=== PATIENT | female | born 1980 | race Caucasian/White ===

== ENCOUNTER 2018-10-09 13:40 | Outpatient (CLI) | payer MEDICAID ==
[~2018-10-09] VITALS: Ht 154.9 cm; Wt 91.2 kg
--- NOTE | 2018-10-09 14:37 | HP ---
Date/Time of Note Date/Time of Note DATE: 10/09/18 TIME: 14:23 OB - History Hx of Present Free Text/Dictation 38 YO with IUP at 33 weeks with EDC on 11/20/2018 who reports to L&D for APT. she has low NASRIN-A and IUGR. Care: Good Care Ultrasounds: No ultrasounds Obstetrical Complications: Gestational Diabetes Medical Complications: None Past Family/Social History * Past Medical, Surgical, Family and Obstetric Histories reviewed from chart. OB Admission Exam Physical Exam HEENT: WNL Heart: Rhythm Normal Lungs: Clear, Equal Abdomen: WNL Extremities: Normal Reflexes: Normal OB Assessment/Plan Reason for admission: other (IUP at 33 weeks, GDM, Low NASRIN-A) Other plan: NST AVERY HERNÁNDEZ MD Oct 09, 2018 14:35
--- NOTE | 2018-10-09 15:26 | TRIAGE ---
OB Triage Datetime Report Generated by CPN: 10/09/2018 15:26 Datetime: 10/09/2018 15:04 Labor Evaluation Monitor Mode: External Heart Rate Monitor Mode: External US Datetime: 10/09/2018 14:08 Assessment Type: Triage Maternal Assessment Level of Consciousness: Keenly Alert, Responsive DTR's/Clonus: DTRs 2+; No Clonus Headache: Denies Blurred Vision: No Respiratory Effort: Unlabored; Regular Rhythm; Equal Expansion Breath Sounds, Left: Clear and Equal Breath Sounds, Right: Clear and Equal Nausea/Vomiting: Denies RUQ Epigastric Pain: Denies Lower Extremities Edema: None Degree: None Upper Extremities Edema: None Degree: None Facial Edema: None Fall Risk Assessment History of Falling: (0) No Secondary Diagnosis: (0) No Ambulatory Aid: (0) Bedrest/Nurse Assist IV Therapy: (0) No Gait: (0) Normal/Bedrest/Immobile Mental Status: (0) Oriented to Own Ability Fall Score: 0 Fall Risk Score Definition: No Risk: No action required Datetime: 10/09/2018 14:07 Time of Arrival: 10/09/2018 13:27 EGA: 34.0 Arrived By: Ambulatory Arrived From: Office Chief Complaint: PT. SENT FROM CLINIC FOR NST/BPP FOR LOW NASRIN-A/GDM Movement: Present Contractions: Denies/Absent Rupture of Membranes: Denies Vaginal Bleeding: None Vaginal Discharge: Denies Recent Sexual Intercouse: Denies Abdominal Trauma: Not Applicable Time Provider Notified: 10/09/2018 14:00 Provider Notified: JOSE Initial Plan: NST/BPP
[2018-10-09 15:28] VITALS: BP 110/56; PULSE 82; RESP 18
[2018-10-09 15:30] VITALS: Ht 154.9 cm; Wt 91.2 kg
== END 2018-10-09 15:40 | disposition home or self-care (01) ==
LOC: OBT 13:40 → L-D 13:40 → OBT 15:40
PROVIDERS: ATTEND Specialist
DX: O36.5930 Maternal care for other known or suspected poor fetal growth, third trimester, not applicable or unspecified (principal); O24.419 Gestational diabetes mellitus in pregnancy, unspecified control; Z3A.33 33 weeks gestation of pregnancy
CPT/HCPCS: 76818; Z7500; G0463

== ENCOUNTER 2018-11-16 07:30 | Inpatient (IN) | payer MEDICAID ==
[~2018-11-16] VITALS: Ht 152.4 cm; Wt 95.4 kg
[2018-11-16] MEDS ORDERED: LACTATED RINGER'S 1,000 ML IV SCH ×2 (07:58→12:54)
[2018-11-16] MEDS ORDERED: METHYLERGONOVINE 0.2 MG INJ IM PRN (08:00)
[2018-11-16] MEDS ORDERED: MISOPROSTOL 200 MCG TAB PR PRN ×2 (08:00→13:00)
[2018-11-16] MEDS ORDERED: CEFAZOLIN 2 GM/50 ML (PMX) 50 ML IVPB SCH (08:00)
[2018-11-16] MEDS ORDERED: OXYTOCIN 30 UNITS/LR 500 ML IV PRN (08:00)
[2018-11-16] MEDS ORDERED: CARBOPROST 250 MCG INJ IM PRN (08:00)
--- NOTE | 2018-11-16 11:01 | HP ---
Date/Time of Note Date/Time of Note DATE: 11/16/18 TIME: 10:59 OB - History Hx of Present Free Text/Dictation 38-year-old 3 para 2 with at 39 weeks and 3 days with estimated due date. The patient with history of previous delivery, who desires to have repeat delivery. I discussed with the patient the risks, benefits, indications, and alternatives of procedure including but not limited to risks of infection, bleeding, damage to other organs, bowel, bladder, hernia formation, scar formation, possibility of blood transfusion, possible need for emergency hysterectomy. She was allowed to ask questions. All her questions were answered. Informed consent has been obtained. Early in care patient had decided to have permanent sterilization, but at this time she changed her mind and she declines to have permanent sterilization. Care: Good Care Ultrasounds: Normal mid trimester US Obstetrical Complications: None Medical Complications: None Past Family/Social History * Past Medical, Surgical, Family and Obstetric Histories reviewed from chart. OB Admission Exam Physical Exam HEENT: WNL Heart: Rhythm Normal Lungs: Clear, Equal Abdomen: WNL Extremities: Normal Reflexes: Normal Last 72 hours Lab Results CBC & BMP 11/16/18 08:00 OB Assessment/Plan Other Assessment: at 39 weeks and 3 days. history of previous delivery x2 Plan: Section AVERY GARCIA MD Nov 16, 2018 11:01
[2018-11-16] MEDS ORDERED: ONDANSETRON 4 MG INJ IV ONE (11:30)
[2018-11-16] MEDS ORDERED: CITRIC ACID/NA CITRATE 30 ML CUP PO ONE (11:30)
--- NOTE | 2018-11-16 11:30 | PREAC ---
Date/Time of Note Date/Time of Note DATE: 11/16/18 TIME: 11:29 Anesthesia Eval and Record Evaluation Time Pre-Procedure Interview DATE: 11/16/18 TIME: 11:29 Age 38 Sex female NPO: 8 hrs Preoperative diagnosis Repeat Planned procedure Past Medical History Past Medical History: Includes : : (3), Para: (2), Gestational age: (39) Surgery & Anesthesia Issues No known issue Meds Anticoagulation: No Beta Maulik within 24 hr: No Reason Beta Maulik not given: Pt. not on B-Maulik No Active Prescriptions or Reported Meds Current Medications Lactated Ringer's 1,000 ml @ 125 mls/hr Q8H IV Last administered on 11/16/18at 08:23; Admin Dose 125 MLS/HR; Start 11/16/18 at 07:58 Cefazolin Sodium/ Dextrose 50 ml @ 100 mls/hr ONCE IVPB ; Start 11/16/18 at 08:00 Oxytocin/Lactated Ringer's 500 ml @ 125 mls/hr POST IV ; Start 11/16/18 at 08:00 Oxytocin/Lactated Ringer's 500 ml @ 0 mls/hr ONCE PRN IV .VAGINAL BLEEDING; Start 11/16/18 at 08:00 Methylergonovine Maleate (Methergine) 0.2 mg ONCE PRN IM .VAGINAL BLEEDING; Start 11/16/18 at 08:00 Carboprost Tromethamine (Hemabate) 250 mcg ONCE PRN IM .VAGINAL BLEEDING; Start 11/16/18 at 08:00 Misoprostol (Cytotec) 1,000 mcg ONCE PRN MT .VAGINAL BLEEDING; Start 11/16/18 at 08:00 Meds reviewed: Yes Allergies Coded Allergies: No Known Allergy (Unverified , 10/09/18) Allergies Reviewed: Yes Labs/Studies Labs Reviewed: Reviewed by anesthesiologist Result Diagram: 11/16/18 0800 Laboratory Tests 11/16/18 08:00 Blood Bank Test 11/16/18 08:00 Antibody Screen NEGATIVE Blood Type AB POSITIVE Rh Immune Globulin Candidate NO test: Positive Studies: ECG (n/a), CXR (n/a) Pre-procedure Exam Airway: Adequate mouth opening, Adequate thyromental dist Mallampati: Mallampati II Teeth: Normal Lung: Normal Heart: Normal ASA Physical Status ASA physical status: 2 Emergency: None Planned Anesthetic Neuraxial: Spinal Planned Pain Management Sub-arachniod narcotics, Parenteral pain med Pre-operative Attestations Prior to commencing anesthesia and surgery, the patient was re-evaluated, there was verification of: *The patient's identity *The results of appropriate recent lab work and preoperative vital signs *The above evaluation not changing prior to induction *Anesthetic plan, risk benefits, alternative and complications discussed with patient/family; questions answered; patient/family understands, accepts and wishes to proceed. OSBALDO OBRIEN MD Nov 16, 2018 11:30
[2018-11-16] MEDS ORDERED: OXYCODONE/ACETAMINOPHEN (5/325) TAB PO PRN ×2 (13:00)
[2018-11-16] MEDS ORDERED: OXYTOCIN 30 UNITS/LR 500 ML BAG IV ONE (13:00)
[2018-11-16] MEDS ORDERED: NA PHOSPHATE/BIPHOS 133 ML ENEMA PR PRN (13:00)
[2018-11-16] MEDS ORDERED: KETOROLAC 30 MG INJ ONE (13:18)
[2018-11-16] MEDS ORDERED: DEXAMETHASONE 4 MG/ML 1 ML INJ ONE (13:18)
[2018-11-16] MEDS ORDERED: morphine SULFATE/PF (10 MG/10 ML) INJ ONE (13:18)
[2018-11-16] MEDS ORDERED: ONDANSETRON 4 MG INJ ONE (13:18)
[2018-11-16] MEDS ORDERED: METOCLOPRAMIDE 10 MG INJ ONE (13:18)
[2018-11-16] MEDS ORDERED: OXYTOCIN 10 UNIT INJ ONE (13:18)
[2018-11-16] MEDS ORDERED: PHENYLephrine (100 MCG/ML) 10ML SYG ONE (13:19)
--- NOTE | 2018-11-16 14:19 | PAC ---
Date/Time of Note Date/Time of Note DATE: 11/16/18 TIME: 14:19 Post-Anesthesia Notes Post-Anesthesia Note Last documented vital signs T: 98.0 Activity: WNL Respiratory function: WNL Cardiovascular function: WNL Mental status: Baseline Pain reasonably controlled: Yes Hydration appropriate: Yes Nausea/Vomiting absent: Yes OSBALDO OBRIEN MD Nov 16, 2018 14:19
--- NOTE | 2018-11-16 14:28 | OPR ---
Date/Time of Note Date/Time of Note DATE: 11/16/18 TIME: 14:26 Operative Report Procedure Date: Nov 16, 2018 Preoperative Diagnosis at 39 weeks and 2 days History of. delivery Desires repeat delivery Postoperative Diagnosis Same Operation/Procedure Performed Repeat delivery Surgeon Jeanne Carlisle MD Reinforcing Bar Setter Dr. Pineda Anesthesia Type: spinal Estimated Blood Loss: other (700 mL) Transfusion none Specimen None Grafts/Implants none Tubes/Drains Ayoub catheter Complications none Pt Condition Post Procedure: stable Disposition: PACU Procedure Description The risks, benefits, indications, alternatives of procedure including, but not limited to risk of infection, bleeding, damage to other organs, bowel, bladder, hernia formation, scar formation, possibility of blood transfusions discussed with patient. She was allowed to ask questions. All her questions were answered. Informed consent was obtained. DESCRIPTION OF PROCEDURE: She was taken to the operating room. Spinal anesthesia was induced. She was prepped and draped in the usual sterile fashion. Surgical time out one. Anesthesia was tested to be adequate. With permission from anesthesiologist, a knife was used to make a Pfannenstiel skin incision. The incision was taken down in layers. The fascia was cut, undermined and from the underlying muscle using sharp and blunt dissection. All the bleeders were cauterized. Peritoneum was entered bluntly. A low transverse incision was developed over the uterus. Amniotic fluid was clear and adequate. A viable in vertex presentation was delivered without any difficulty. The cord was clamped and cut, handed to awaiting team. Placenta was then delivered. Uterus was exteriorized, wrapped around a moist lap. Inside uterus was cleaned using a dry lap. All residual membranes were removed. The uterine incision was then closed using #1 Monocryl in 2 layers. The uterus was inserted back inside the abdominal cavity. Irrigation was done carefully. Careful evaluation of the uterine incision revealed no further bleeding. The peritoneum and rectus muscles and fascia were evaluated. All bleeders cauterized. Peritoneum was closed using 2-0 Monocryl. At this time, the count was correct. Rectus muscle was reapproximated using 2-0 Monocryl. Rectus fascia was closed using #1 Vicryl. Subcutaneous tissue was cleaned and irrigated. All bleeders cauterized and the skin closed using Insorb. All counts correct. JEANNE CARLISLE MD Nov 16, 2018 14:28
[2018-11-16] MEDS ORDERED: morphine 2 MG INJ IV PRN ×2 (14:30)
[2018-11-16] MEDS ORDERED: HYDROmorphONE 0.5 MG/0.5 ML SYG IV PRN ×2 (14:30)
[2018-11-16] MEDS ORDERED: HYDROCODONE/APAP (5/325) TAB PO PRN (14:30)
[2018-11-16] MEDS ORDERED: NALOXONE (0.4 MG/ML) INJ IV PRN (14:30)
[2018-11-16] MEDS ORDERED: ONDANSETRON 4 MG INJ IV PRN (14:30)
[2018-11-16] MEDS ORDERED: NALBUPHINE HCL (10 MG/1 ML) INJ IV PRN (14:30)
[2018-11-16] MEDS ORDERED: ACETAMINOPHEN 500 MG TAB PO PRN (14:30)
[2018-11-16] MEDS ORDERED: DIPHENHYDRAMINE 50 MG INJ IV PRN (14:30)
[2018-11-16] MEDS ORDERED: KETOROLAC 30 MG INJ IV PRN (14:30)
[2018-11-16] MEDS: OXYTOCIN 30 UNITS/LR 500 ML IV SCH ×2 (15:37→21:31)
[2018-11-16 16:40] VITALS: BP 109/58; PULSE 50; RESP 18
[2018-11-16 17:40] VITALS: BP 105/60; PULSE 69; RESP 18
[2018-11-16] MEDS ORDERED: IBUPROFEN 600 MG TAB PO SCH (18:00)
[2018-11-16 20:20] VITALS: BP 105/60; PULSE 59; RESP 18
[2018-11-16] MEDS: LANOLIN HPA 1 PKT TOP PRN (21:32)
[2018-11-16] MEDS: SENNA/DOCUSATE NA (8.6MG/50MG) TAB PO SCH (21:32)
[2018-11-17 00:10] VITALS: BP 112/66; PULSE 62; RESP 18
[2018-11-17] MEDS: LACTATED RINGER'S 1,000 ML IV SCH ×2 (03:16→10:05)
[2018-11-17 03:38] VITALS: BP 98/56; PULSE 54; RESP 18
[2018-11-17 08:00] VITALS: BP 106/55; PULSE 68; RESP 18
--- NOTE | 2018-11-17 08:51 | QN ---
Documentation Comment s/p c/s Subjective: no complaint Objective: Afebrile, VSS NAD A&O Abdomen: soft, appropriate tender Incision: no sign of bleeding/infection mild lochia Extremity: 1+ edema bilaterally Assessment: S/p C/S POD # 1 Recovering Well Plan: current care AVERY GARCIA MD Nov 17, 2018 08:51
[2018-11-17] MEDS: SENNA/DOCUSATE NA (8.6MG/50MG) TAB PO SCH ×2 (09:17→21:44)
[2018-11-17 12:00] VITALS: BP 121/68; PULSE 66; RESP 18
[2018-11-17 16:00] VITALS: BP 119/59; PULSE 67; RESP 18
[2018-11-17 19:40] VITALS: BP 108/64; PULSE 71; RESP 18
[2018-11-17] MEDS: IBUPROFEN 600 MG TAB PO SCH (23:37)
[2018-11-18 04:07] VITALS: BP 106/63; PULSE 68; RESP 17
[2018-11-18] MEDS: IBUPROFEN 600 MG TAB PO SCH ×3 (05:43→17:47)
[2018-11-18 08:00] VITALS: BP 107/60; PULSE 69; RESP 20
[2018-11-18] MEDS: SENNA/DOCUSATE NA (8.6MG/50MG) TAB PO SCH ×2 (08:25→21:22)
[2018-11-18] MEDS: LANOLIN HPA 1 PKT TOP PRN (08:25)
--- NOTE | 2018-11-18 08:52 | DS ---
Date/Time of Note Date/Time of Note DATE: 11/18/18 TIME: 08:51 Obstetrical Discharge Record Final Diagnosis Final Diagnosis: Term delivered Section Section: Repeat Complications Augmentation: No Induction: No Condition on Discharge Physical Assessment Voiding: Yes Bowel Movement: Yes Breast: Soft, non-tender, Filling Fundus: Firm Abdomen and Incision: Soft, appropriate tenderness incision is covered Calf Tenderness: No Patient Condition: Good AVERY GARCIA MD Nov 18, 2018 08:52
[2018-11-18 16:00] VITALS: BP 114/62; PULSE 61; RESP 18
[2018-11-18 20:30] VITALS: BP 110/62; PULSE 65; RESP 18
[2018-11-19 04:19] VITALS: BP 110/67; PULSE 62; RESP 18
[2018-11-19] MEDS: IBUPROFEN 600 MG TAB PO SCH ×3 (05:44→12:41)
[2018-11-19 08:45] VITALS: BP 114/70; PULSE 61; RESP 18
[2018-11-19] MEDS ORDERED: MEASLES,MUMPS,RUBELLA VACCINE INJ SC* ONE (09:00)
[2018-11-19] MEDS ORDERED: DIPHTH/TET/ACEL PERTUSS (ADULT) 0.5 ML VIAL IM* ONE (09:00)
[2018-11-19] MEDS: SENNA/DOCUSATE NA (8.6MG/50MG) TAB PO SCH (10:00)
[2018-11-19] MEDS ORDERED: HYDROCODONE/APAP (5/325) TAB PO PRN (12:30)
--- NOTE | 2018-11-20 16:58 | DELSUM ---
Delivery Summary A-C Datetime Report Generated by CPN: 11/20/2018 16:58 DELIVERY PERSONNEL Galvanizing Pot Runner: Will, Nenita MATERNAL INFORMATION Delivery Anesthesia: Spinal Medications in Delivery: SEE ANESTHESIA NOTE Delivery QBL (ml): 700 Placenta Cultured: No Maternal Complications: None LABOR SUMMARY EDC: 11/20/2018 00:00 No. Babies in Womb: 1 Attempted: No Labor Anesthesia: None LABOR INFORMATION Reason for Induction: Not Applicable Group B Beta Strep: Not Done Antibiotics # of Doses: 1 Antibiotics Time of Last Dose: 11/16/2018 13:20 Steroids Given: None Reason Steroids Not Administered: Not Applicable MEMBRANES Membranes Rupture Method: Artificial Rupture of Membranes: 11/16/2018 13:43 Length of Rupture (hr): 0.02 Amniotic Fluid Color: Clear Amniotic Fluid Amount: Moderate Amniotic Fluid Odor: None STAGES OF LABOR Stage 3 hr: 0 Stage 3 min: 1 CSECTION DELIVERY Primary Indication: Repeat Elective CSection Urgency: Non Elective CSection Incidence: Repeat Labor: No Labor Elective: Nonelective CSection Incision: Lower Uterine Transverse BABY A INFORMATION Delivery Date/Time: 11/16/2018 13:44 Method of Delivery: Born in Route : No : N/A Forceps: N/A Vacuum Extraction: N/A Shoulder Dystocia : N/A SHOULDER DYSTOCIA BABY A Delivery Date/Time: 11/16/2018 13:44 PRESENTATION/POSITION BABY A Presentation: Cephalic Cephalic Presentation: Vertex Vertex Position: Left Occipital Anterior Breech Presentation: N/A PLACENTA INFORMATION BABY A Placenta Delivery Time : 11/16/2018 13:45 Placenta Method of Delivery: Manual Removal Placenta Status: Delivered SCORES BABY A Heart Rate 1 min: >100 bpm Resp Effort 1 min: Good Cry Reflex Irritability 1 min: Cough/Sneeze/Pulls Away Muscle Tone 1 min: Active Motion Color 1 min: Blue/Pale Resuscitation Effort 1 min: Tactile Stimulation SCORE 1 MIN: 8 Heart Rate 5 min: >100 bpm Resp Effort 5 min: Good Cry Reflex Irritability 5 min: Cough/Sneeze/Pulls Away Muscle Tone 5 min: Active Motion Color 5 min: Body Jennette, Extremit Blue Resuscitation Effort 5 min: Tactile Stimulation SCORE 5 MIN: 9 INFORMATION BABY A Gestational Age at Delivery: 39.3 Gestational Status: Full Term- 39- 40.6 Weeks Infant Outcome : Liveborn, with signs of life Infant Condition : Stable Infant Sex: Male IDENTIFICATION/MEDS BABY A ID Band Number: [id number] ID Band Location: Right Leg; Left Arm Sensor Applied: Yes Sensor Number: [id number] Sensor Location : Cord Clamp Vitamin K Given : Not Given Erythromycin Given: Not Given WEIGHT/LENGTH BABY A Birthweight (gm): 3500 Infant Weight (lb): 7 Infant Weight (oz): 11 Length (in): 20.00 Infant Length (cm): 50.80 CORD INFORMATION BABY A No. Cord Vessels: 3 Nuchal Cord : N/A Cord Blood Taken: Yes Infant Suction: Mouth; Nose ASSESSMENT BABY A Complications: None Physical Findings at Delivery: Within Normal Limits Infant Respirations: Appears Normal Cover Assembler/ALS Called : No Transferred To: Nursery
--- NOTE | 2018-11-25 09:44 | DELSUM ---
Delivery Summary A-C Datetime Report Generated by CPN: 11/25/2018 09:44 DELIVERY PERSONNEL Composition Roofer: Will, Nenita MATERNAL INFORMATION Delivery Anesthesia: Spinal Medications in Delivery: SEE ANESTHESIA NOTE Delivery QBL (ml): 700 Placenta Cultured: No Maternal Complications: None LABOR SUMMARY EDC: 11/20/2018 00:00 No. Babies in Womb: 1 Attempted: No Labor Anesthesia: None LABOR INFORMATION Reason for Induction: Not Applicable Group B Beta Strep: Not Done Antibiotics # of Doses: 1 Antibiotics Time of Last Dose: 11/16/2018 13:20 Steroids Given: None Reason Steroids Not Administered: Not Applicable MEMBRANES Membranes Rupture Method: Artificial Rupture of Membranes: 11/16/2018 13:43 Length of Rupture (hr): 0.02 Amniotic Fluid Color: Clear Amniotic Fluid Amount: Moderate Amniotic Fluid Odor: None STAGES OF LABOR Stage 3 hr: 0 Stage 3 min: 1 CSECTION DELIVERY Primary Indication: Repeat Elective CSection Urgency: Non Elective CSection Incidence: Repeat Labor: No Labor Elective: Nonelective CSection Incision: Lower Uterine Transverse BABY A INFORMATION Delivery Date/Time: 11/16/2018 13:44 Method of Delivery: Born in Route : No : N/A Forceps: N/A Vacuum Extraction: N/A Shoulder Dystocia : N/A SHOULDER DYSTOCIA BABY A Delivery Date/Time: 11/16/2018 13:44 PRESENTATION/POSITION BABY A Presentation: Cephalic Cephalic Presentation: Vertex Vertex Position: Left Occipital Anterior Breech Presentation: N/A PLACENTA INFORMATION BABY A Placenta Delivery Time : 11/16/2018 13:45 Placenta Method of Delivery: Manual Removal Placenta Status: Delivered SCORES BABY A Heart Rate 1 min: >100 bpm Resp Effort 1 min: Good Cry Reflex Irritability 1 min: Cough/Sneeze/Pulls Away Muscle Tone 1 min: Active Motion Color 1 min: Blue/Pale Resuscitation Effort 1 min: Tactile Stimulation SCORE 1 MIN: 8 Heart Rate 5 min: >100 bpm Resp Effort 5 min: Good Cry Reflex Irritability 5 min: Cough/Sneeze/Pulls Away Muscle Tone 5 min: Active Motion Color 5 min: Body Lorane, Extremit Blue Resuscitation Effort 5 min: Tactile Stimulation SCORE 5 MIN: 9 INFORMATION BABY A Gestational Age at Delivery: 39.3 Gestational Status: Full Term- 39- 40.6 Weeks Infant Outcome : Liveborn, with signs of life Infant Condition : Stable Infant Sex: Male IDENTIFICATION/MEDS BABY A ID Band Number: [id number] ID Band Location: Right Leg; Left Arm Sensor Applied: Yes Sensor Number: [id number] Sensor Location : Cord Clamp Vitamin K Given : Not Given Erythromycin Given: Not Given WEIGHT/LENGTH BABY A Birthweight (gm): 3500 Infant Weight (lb): 7 Infant Weight (oz): 11 Length (in): 20.00 Infant Length (cm): 50.80 CORD INFORMATION BABY A No. Cord Vessels: 3 Nuchal Cord : N/A Cord Blood Taken: Yes Infant Suction: Mouth; Nose ASSESSMENT BABY A Complications: None Physical Findings at Delivery: Within Normal Limits Infant Respirations: Appears Normal Marketing Intelligence Analyst/ALS Called : No Transferred To: Nursery
== END 2018-11-19 16:58 | disposition home or self-care (01) | DRG 788 ==
LOC: L-D 07:30 → PP1 16:34 → UNDODISIN 11-19 16:58
PROVIDERS: ADMIT Specialist; ATTEND Specialist
PROC: 10D00Z1 Extraction of Products of Conception, Low, Open Approach (ICD-10-PCS; principal; 2018-11-16 10:00)
DX: O34.211 Maternal care for low transverse scar from previous cesarean delivery (principal); Z37.0 Single live birth; Z3A.39 39 weeks gestation of pregnancy
CPT/HCPCS: 71046; 85025; 85610; 85730; 86592; 86850; 86900; 86901; 87340; 99464; J0690; J1100; J1885; J2274; J2370; J2405; J2590; J2765; J7120